=== PATIENT | male | born 1960 | race Two or more races ===

== ENCOUNTER 2019-05-04 16:30 | Emergency (ER) | payer OTHER ==
[~2019-05-04] VITALS: Ht 177.8 cm; Wt 104.3 kg
[2019-05-04] MEDS ORDERED: LISI-607 PO (16:45)
[2019-05-04] MEDS ORDERED: WARF-58 PO (16:45)
--- NOTE | 2019-05-04 17:18 | NUR ---
PT IS IN ROOM #2A. DR SCHWARZ EVALUATED THE PT.
--- NOTE | 2019-05-04 17:32 | NUR ---
PT WAS D/C'd TO HOME AFTER DR SCHWARZ EVALUATION. D/C INSTRUCTIONS GIVEN TO THE PT.
[2019-05-04 17:33] VITALS: BP 142/85
== END 2019-05-04 17:34 | disposition home or self-care (01) ==
LOC: ER 16:30
DX: S00.03XA Contusion of scalp, initial encounter (principal); Z79.01 Long term (current) use of anticoagulants; Z79.899 Other long term (current) drug therapy; W22.8XXA Striking against or struck by other objects, initial encounter; Y93.89 Activity, other specified; Y92.89 Other specified places as the place of occurrence of the external cause; Y99.0 Civilian activity done for income or pay
CPT/HCPCS: 70450; A4663